=== PATIENT | female | born 1995 | race Two or more races ===

== ENCOUNTER 2019-07-06 19:50 | Emergency (ER) | payer OTHER ==
[~2019-07-06] VITALS: Ht 170.2 cm; Wt 149.7 kg
[2019-07-06 20:22] VITALS: BP 147/92
--- NOTE | 2019-07-06 20:22 | NUR ---
PT TO ED WITH FACIAL SWELLING, RIGHT UPPER LIP SWOLLEN, PT REPORTS SOME DIFFICULTY AND DISCOMFORT WHEN SWALLOWING, DENIES DIFFICULTY BREATHING. DENIES ANY OTHER C/O AT THIS TIME. PT CONNECTED TO MONITORING, CALL LIGHT WITHIN REACH, ALL SAFETY MEASURES IN PLACE.
== END 2019-07-06 20:43 | disposition home or self-care (01) ==
LOC: ED 20:00
DX: T78.3XXA Angioneurotic edema, initial encounter (principal); R22.9 Localized swelling, mass and lump, unspecified
CPT/HCPCS: 99283

== ENCOUNTER 2020-06-14 00:06 | Emergency (ER) | payer OTHER ==
[~2020-06-14] VITALS: Ht 170.2 cm; Wt 158.3 kg
--- NOTE | 2020-06-14 00:40 | NUR ---
pt back to this rn's room at this time. pt resting on gurney, nad, appears comfortable, provided warm blankets for additional comfort, bed in lowest, rails engaged, call light on lap. SO at bs. pt reports coming into ed tonight due to heavy menstrual bleeding x8days, states shes been passing large clots, larger than golf ball size. not bleeding more than a pad an hour. pt states she has begun to feel more fatigued and tired as the week goes on. denies any dizziness/light headedness. pt states she saw here pcp who was not extremely concerned regarding bleeding but did want us/labs done. wctm.
[2020-06-14 00:46] LABS: BASOPHILS % (AUTO) 1 % (0-1); EOSINOPHILS % (AUTO) 2 % (1-7); LYMPHOCYTES % (AUTO) 33 % (22-44); MEAN CORPUSCULAR HEMOGLOBIN 24.2 pg (27.0-34.8); MEAN CORPUSCULAR HGB CONC 33.2 g/dL (32.4-35.8); MEAN PLATELET VOLUME 7.5 fL (7.4-10.4); MONOCYTES % (AUTO) 6 % (2-9); NEUTROPHILS % (AUTO) 58 % (42-75); PLATELET COUNT 360 x10^3/uL (130-400); RED BLOOD COUNT 5.46 x10^6/uL (3.82-5.3)
[2020-06-14 00:47] LABS: MD NO
[2020-06-14 00:59] LABS: ALANINE AMINOTRANSFERASE 39 U/L (12-78); ALBUMIN 3.2 g/dL (3.4-5.0); ANION GAP 7 mmol/L (5-15); CALCIUM 8.2 mg/dL (8.5-10.1); CHLORIDE 109 mmol/L (98-107); CREATININE 0.74 mg/dL (0.55-1.02)
[2020-06-14 01:03] LABS: ALKALINE PHOSPHATASE 70 U/L (45-117)
[2020-06-14 01:10] LABS: BILIRUBIN,TOTAL < 0.1 mg/dL (0.2-1.0)
--- NOTE | 2020-06-14 01:15 | NUR ---
ultrasound at bs, pt nad, back resting on gurney after ambulating to restroom with a smooth and steady gait to obtain ua. ua walked to lab. SO at bs. wctm. waiting for labs and us results.
[2020-06-14 01:24] LABS: MICROSCOPIC AUTO
[2020-06-14 02:23] VITALS: BP 121/68
--- NOTE | 2020-06-14 02:47 | NUR ---
Patient given discharge instructions and they have confirmed that they understand the instructions. Patient ambulatory with steady gait. nad, denies additional questions or needs at this time. no personal belongings left in room after dc.
== END 2020-06-14 02:55 | disposition home or self-care (01) ==
LOC: ED 02:53
DX: N93.8 Other specified abnormal uterine and vaginal bleeding (principal); R10.31 Right lower quadrant pain; R10.32 Left lower quadrant pain; R10.9 Unspecified abdominal pain
CPT/HCPCS: 36415; 76830; 80053; 81001; 84703; 85025; 86901; 99284

== ENCOUNTER → 2020-10-23 | Outpatient (CLI) | payer OTHER ==
[2020-10-23 13:39] LABS: BASOPHILS % (AUTO) 0 % (0-1); EOSINOPHILS % (AUTO) 2 % (1-7); LYMPHOCYTES % (AUTO) 34 % (22-44); MEAN CORPUSCULAR HEMOGLOBIN 22.8 pg (27.0-34.8); MEAN CORPUSCULAR HGB CONC 32.6 g/dL (32.4-35.8); MEAN PLATELET VOLUME 7.7 fL (7.4-10.4); MONOCYTES % (AUTO) 7 % (2-9); NEUTROPHILS % (AUTO) 57 % (42-75); PLATELET COUNT 416 x10^3/uL (130-400); RED BLOOD COUNT 5.66 x10^6/uL (3.82-5.3); RED CELL DISTRIBUTION WIDTH 15.8 % (9.6-15.2)
[2020-10-23 14:10] LABS: ALBUMIN 3.3 g/dL (3.4-5.0); ANION GAP 8 mmol/L (5-15); CALCIUM 8.9 mg/dL (8.5-10.1); CHLORIDE 106 mmol/L (98-107); CHOLESTEROL, TOTAL 173 mg/dL (140-239); CREATININE 0.63 mg/dL (0.55-1.02)
[2020-10-23 14:13] LABS: ALANINE AMINOTRANSFERASE 46 U/L (12-78); ALKALINE PHOSPHATASE 65 U/L (45-117); BILIRUBIN,TOTAL 0.4 mg/dL (0.2-1.0); CHOL/HDL RATIO 3.5; HDL CHOL % 29 % (28-40); HDL CHOLESTEROL (DIRECT) 50 mg/dL (40-60); LDL CHOLESTEROL,CALCULATED 92 mg/dL (54-169); LDL/HDL RATIO 1.8 (0.5-3.0); TOTAL PROTEIN 7.4 g/dL (6.4-8.2); TRIGLYCERIDES 155 mg/dL (50-200); VLDL CHOLESTEROL 31 mg/dL (0-25)
== END | disposition home or self-care (01) ==
LOC: LAB 13:19
DX: E28.2 Polycystic ovarian syndrome (principal); E11.9 Type 2 diabetes mellitus without complications; R71.8 Other abnormality of red blood cells; E78.1 Pure hyperglyceridemia; Z83.3 Family history of diabetes mellitus
CPT/HCPCS: 36415; 80053; 80061; 83036; 85025

== ENCOUNTER 2020-12-11 09:21 | Emergency (ER) | payer OTHER ==
[~2020-12-11] VITALS: Ht 170.2 cm; Wt 154.4 kg
[2020-12-11] MEDS ORDERED: DIPHENHYDRAMINE 25 MG CAPSULE PO ONE (10:00)
[2020-12-11] MEDS ORDERED: FAMOTIDINE 20 MG TABLET PO ONE (10:00)
[2020-12-11] MEDS ORDERED: DIPHENHYDRAMINE 25 MG CAPSULE ONE (11:16)
[2020-12-11] MEDS ORDERED: FAMOTIDINE 20 MG TABLET ONE (11:16)
--- NOTE | 2020-12-11 11:18 | NUR ---
ASSUMED CARE OF PATIENT, SWELLING TO LIPS AND MOUTH SINCE LAST TIME. STATES NO DIFFICULTY BREATHING OR PROBLEMS SWALLOWING. MEDICATED ORDERED.
[2020-12-11] MEDS ORDERED: DEXAMETHASONE 4 MG TABLET ONE (12:06)
[2020-12-11 12:13] VITALS: BP 163/98
[2020-12-11] MEDS ORDERED: METF750T42 PO (12:15)
[2020-12-11] MEDS ORDERED: ATOR40TA78 PO (12:15)
[2020-12-11] MEDS ORDERED: DEXAMETHASONE 4 MG TABLET PO ONE (12:30)
--- NOTE | 2020-12-11 12:55 | NUR ---
Patient/Caregiver given discharge instructions and they have confirmed that they understand the instructions. Patient ambulatory with steady gait.
== END 2020-12-11 12:57 | disposition home or self-care (01) ==
LOC: ED 09:50
DX: T78.3XXA Angioneurotic edema, initial encounter (principal); R22.0 Localized swelling, mass and lump, head
CPT/HCPCS: 99284; Q0163